=== PATIENT | male | born 1975 | race Caucasian/White ===

== ENCOUNTER 2017-11-27 19:19 | Emergency (ER) | payer BC ==
[2017-11-27 19:40] VITALS: BP 138/96; PULSE 80; RESP 19; TEMP 98.9; O2SAT 99
--- NOTE | 2017-11-27 20:33 | ED PDOC ---
HPI: General Adult Time Seen by Provider: 11/27/17 19:57 Chief Complaint (Nursing): ENT Problem Chief Complaint (Provider): ENT Problem History Per: Patient History/Exam Limitations: no limitations Onset/Duration Of Symptoms: Days Additional Complaint(s): 42 year old male presents to the emergency department with a complaint of a left sided throat pain with swelling for the past 2 days after having a root canal done on Thursday to the right second molar, for that procedure he was only given local anesthesia. Reports pain has gotten worse since having the root canal. States he noted a lot of swelling inside throat today. Denies fever, chills, cough, dysphagia, or rash. PMD: Dr. Mynor Del Rosario MD Past Medical History Reviewed: Historical Data, Nursing Documentation, Vital Signs Vital Signs: Last Vital Signs Temp 98.9 F 11/27/17 19:36 Pulse 80 11/27/17 19:36 Resp 19 11/27/17 19:36 BP 138/96 H 11/27/17 19:36 Pulse Ox 99 11/27/17 20:46 - Medical History PMH: No Chronic Diseases - Surgical History Surgical History: No Surg Hx - Family History Family History: States: Unknown Family Hx - Social History Current smoker - smoking cessation education provided: No Alcohol: None Drugs: Denies - Home Medications Home Medications: Ambulatory Orders Medication Instructions Recorded Ibuprofen [Motrin Tab] 600 mg PO QID PRN #20 tab 11/27/17 Penicillin VK [Penicillin VK Tab] 500 mg PO QID #80 tab 11/27/17 - Allergies Allergies/Adverse Reactions: Allergies Allergy/AdvReac Type Severity Reaction Status Date / Time No Known Allergies Allergy Verified 11/27/17 19:36 Review of Systems ROS Statement: Except As Marked, All Systems Reviewed And Found Negative (As per HPI, otherwise negative) Constitutional: Negative for: Fever, Chills ENT: Positive for: Throat Pain, Throat Swelling. Negative for: Other (dysphagia ) Respiratory: Negative for: Cough Skin: Negative for: Rash Physical Exam - Reviewed Nursing Documentation Reviewed: Yes Vital Signs Reviewed: Yes - Physical Exam Appears: Positive for: Well, Non-toxic, No Acute Distress Head Exam: Positive for: ATRAUMATIC, NORMAL INSPECTION, NORMOCEPHALIC Skin: Positive for: Normal Color, Warm, Dry ENT: Positive for: TM Is/Are (normal, no erythema), Pharyngeal Erythema (Mild), Tonsillar Exudate (Left). Negative for: Normal ENT Inspection Neck: Positive for: Normal, Supple Cardiovascular/Chest: Positive for: Regular Rate, Rhythm. Negative for: Murmur Respiratory: Positive for: Normal Breath Sounds. Negative for: Decreased Breath Sounds, Rales, Rhonchi, Wheezing Extremity: Positive for: Normal ROM. 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 Negative for : Motor/Sensory Deficits - ECG O2 Sat by Pulse Oximetry: 99 (RA) Pulse Ox Interpretation: Normal Medical Decision Making Medical Decision Making: Time: 1956 Initial impression: Throat pain, tonsillitis Time: 2045 Patient is discharged home and given Rx of Motrin 600 mg and Penicillin VK 500 mg for Tonsillitis. Advised to follow up with primary care physician in 1-2 days without fail. Advised to take medication as prescribed. Return to the emergency room at any time for any new or worsening symptoms. Patient states he fully agrees with and understands discharge instructions. States that he agrees with the plan and disposition. Verbalized and repeated discharge instructions and plan. I have given the patient opportunity to ask any additional questions. Scribe Attestation: Documented by Chani Pizano, acting as a scribe for Savannah Mascorro PA-C Provider Scribe Attestation: All medical record entries made by the Scribe were at my direction and personally dictated by me. I have reviewed the chart and agree that the record accurately reflects my personal performance of the history, physical exam, medical decision making, and the department course for this patient. I have also personally directed, reviewed, and agree with the discharge instructions and disposition. Disposition - Clinical Impression Clinical Impression: Tonsillitis Counseled Patient/Family Regarding: Diagnosis, Need For Followup, Rx Given - Disposition Disposition: Routine/Home Disposition Time: 20:46 Condition: STABLE Additional Instructions: Thank you for letting us take care of you today. You were treated for tonsillitis. The emergency medical care you received today was directed at your acute symptoms. If you were prescribed any medication, please fill it and take as directed. It may take several days for your symptoms to resolve. Return to the Emergency Department if your symptoms worsen, do not improve, or if you have any other problems. Please contact your doctor in 2 days for re-evaluation and follow up / or call one of the physicians/clinics you have been referred to that are listed on the Patient Visit Information form that is included in your discharge packet. Bring any paperwork you were given at discharge with you along with any medications you are taking to your follow up visit. Our treatment cannot replace ongoing medical care by a primary care provider (PCP) outside of the emergency department. Thank you for allowing the [facility] team to be part of your care today. 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
== END 2017-11-27 21:01 | disposition home or self-care (01) ==
LOC: H.ER 19:19
DX: J03.90 Acute tonsillitis, unspecified (principal)

== ENCOUNTER 2017-12-14 14:55 | Emergency (ER) | payer BC ==
[2017-12-14 15:05] VITALS: BP 128/77; PULSE 66; RESP 16; TEMP 97.8; O2SAT 98
--- NOTE | 2017-12-14 16:44 | ED PDOC ---
HPI: General Adult Time Seen by Provider: 12/14/17 16:43 Chief Complaint (Nursing): Abnormal Labs Chief Complaint (Provider): SENT HERE FOR BLOODWORK History Per: Patient (42 Y/O MALE STATES HE IS HERE FOR BLOODWORK. STATES HE SPOKE WITH [employer] AND WAS TOLD HE COULD RETURN FOR ROUTINE BLOODWORK AT HOSPITAL. NO COMPLAINTS.) Past Medical History Reviewed: Historical Data, Nursing Documentation, Vital Signs Vital Signs: Last Vital Signs Temp 97.8 F 12/14/17 15:02 Pulse 66 12/14/17 15:02 Resp 16 12/14/17 15:02 BP 128/77 12/14/17 15:02 Pulse Ox 98 12/14/17 16:43 - Family History Family History: States: Unknown Family Hx - Home Medications Home Medications: Ambulatory Orders Medication Instructions Recorded Ibuprofen [Motrin Tab] 600 mg PO QID PRN #20 tab 11/27/17 Penicillin VK [Penicillin VK Tab] 500 mg PO QID #80 tab 11/27/17 - Allergies Allergies/Adverse Reactions: Allergies Allergy/AdvReac Type Severity Reaction Status Date / Time No Known Allergies Allergy Verified 11/27/17 19:36 Review of Systems ROS Statement: Except As Marked, All Systems Reviewed And Found Negative Physical Exam - Reviewed Nursing Documentation Reviewed: Yes Vital Signs Reviewed: Yes - Physical Exam Appears: Positive for: Well, Non-toxic, No Acute Distress Head Exam: Positive for: ATRAUMATIC, NORMAL INSPECTION, NORMOCEPHALIC Skin: Positive for: Normal Color, Warm, DRY Eye Exam: Positive for: EOMI, Normal appearance, PERRL ENT: Positive for: Normal ENT Inspection Neck: Positive for: Normal, Painless ROM Cardiovascular/Chest: Positive for: Regular Rate, Rhythm Respiratory: Positive for: CNT, Normal Breath Sounds Gastrointestinal/Abdominal: Positive for: Normal Exam, Bowel Sounds, Soft Back: Positive for: Normal Inspection Extremity: Positive for: Normal ROM Neurologic/Psych: Positive for: Alert, Oriented - ECG O2 Sat by Pulse Oximetry: 98 Disposition - Clinical Impression Clinical Impression: General medical exam - Patient ED Disposition Is Patient to be Admitted: No - Disposition Disposition: Routine/Home Disposition Time: 16:46 Condition: FAIR Instructions: Normal Exam (ED) Forms: [employer] (Armenian)
== END 2017-12-14 17:15 | disposition home or self-care (01) ==
LOC: H.ER 14:55
DX: Z00.00 Encounter for general adult medical examination without abnormal findings (principal)